=== PATIENT | female | born 1995 | race African-American/Black ===

== ENCOUNTER 2016-06-29 20:37 | Emergency (ER) | payer MEDICAID ==
[~2016-06-29] VITALS: Ht 170.2 cm; Wt 54.4 kg
[~2016-06-29 20:37] MED LIST: ALBUTEROL
[2016-06-29 21:58] VITALS: BP 124/72
== END 2016-06-29 23:39 | disposition home or self-care (01) ==
LOC: ER 20:38
DX: R53.1 Weakness (principal); J45.909 Unspecified asthma, uncomplicated; Z88.0 Allergy status to penicillin; Y04.0XXA Assault by unarmed brawl or fight, initial encounter; Y93.89 Activity, other specified; Y99.8 Other external cause status; Y92.89 Other specified places as the place of occurrence of the external cause
CPT/HCPCS: 99283; Z7610

== ENCOUNTER 2016-09-08 18:34 | Emergency (ER) | payer MEDICAID ==
[~2016-09-08] VITALS: Ht 167.6 cm; Wt 70.0 kg
[2016-09-08 18:59] VITALS: BP 139/79
== END 2016-09-08 19:19 | disposition home or self-care (01) ==
LOC: ER 18:34
DX: J45.909 Unspecified asthma, uncomplicated (principal); R03.0 Elevated blood-pressure reading, without diagnosis of hypertension; Z88.0 Allergy status to penicillin; Z88.1 Allergy status to other antibiotic agents; G40.909 Epilepsy, unspecified, not intractable, without status epilepticus
CPT/HCPCS: 71010; 93005; 99284

== ENCOUNTER 2021-06-13 02:09 | Emergency (ER) | payer MEDICAID ==
[~2021-06-13] VITALS: Ht 157.5 cm; Wt 57.0 kg
[2021-06-13] MEDS ORDERED: BO1 TP ×2 (03:07→15:19)
[2021-06-13] MEDS ORDERED: DIPHENHYDRAMINE 25MG CAPSULE PO ONE (03:15)
[2021-06-13 03:40] VITALS: BP 109/62
[2021-06-13] MEDS ORDERED: DOXY100T28 PO (15:06)
[2021-06-13] MEDS ORDERED: CETI10TA6 PO (15:19)
[2021-06-14 09:07] LABS: HIV SCREEN 4G Non Reactive (Non Reactive)
== END 2021-06-13 03:53 | disposition home or self-care (01) ==
LOC: ER 02:09
DX: A53.9 Syphilis, unspecified (principal); J45.909 Unspecified asthma, uncomplicated; G40.909 Epilepsy, unspecified, not intractable, without status epilepticus; Z88.0 Allergy status to penicillin
CPT/HCPCS: 86592; 86593; 86694; 86695; 86696; 86780; 87389; 99283; Q0163

== ENCOUNTER 2021-06-13 14:42 | Emergency (ER) | payer MEDICAID ==
[~2021-06-13] VITALS: Ht 157.5 cm; Wt 57.0 kg
[~2021-06-13 14:42] MED LIST changes: +BO1 TP
[2021-06-13 14:48] VITALS: BP 114/79
[2021-06-13] MEDS ORDERED: DOXY100T28 PO (15:06)
[2021-06-13] MEDS ORDERED: CETI10TA6 PO (15:19)
[2021-06-13] MEDS ORDERED: BO1 TP (15:19)
== END 2021-06-13 15:17 | disposition home or self-care (01) ==
LOC: ER 14:42
DX: A53.9 Syphilis, unspecified (principal); G40.909 Epilepsy, unspecified, not intractable, without status epilepticus; J45.909 Unspecified asthma, uncomplicated; Z88.0 Allergy status to penicillin
CPT/HCPCS: 99283

== ENCOUNTER 2023-02-16 11:03 | Emergency (ER) | payer MEDICAID, OTHER ==
[~2023-02-16] VITALS: Ht 160 cm; Wt 91.0 kg
[~2023-02-16 11:03] MED LIST changes: +CETI10TA6 PO; +DOXY100T28 PO
[2023-02-16 11:12] VITALS: BP 114/75; O2SAT 100
[2023-02-16] MEDS ORDERED: ONDANSETRON 4MG ODT PO ONE (11:45)
[2023-02-16] MEDS ORDERED: ACETAMINOPHEN 325MG TABLET PO ONE (11:45)
[2023-02-16] MEDS ORDERED: FAMOTIDINE 20MG TABLET PO ONE (11:45)
[2023-02-16] MEDS ORDERED: FAMO-135 MT (11:49)
[2023-02-16] MEDS ORDERED: ACET-2708 MT (11:49)
[2023-02-16] MEDS ORDERED: ONDA4TAB50 MT (11:49)
[2023-02-16 13:59] LABS: BASOPHILS % 0.2 % (0.0-2.0); EOSINOPHILS % 0.5 % (0.0-5.0); HEMATOCRIT. 37.3 % (36.0-48.0); HEMOGLOBIN. 12.4 g/dL (12.0-16.0); LYMPHOCYTES % 17.4 % (20.0-50.0); MEAN CORPUSCULAR HGB CONC 33.2 g/dL (31.0-37.0); MEAN CORPUSCULAR VOLUME 99.6 fL (81.0-99.0); MEAN PLATELET VOLUME 8.2 fl (7.4-10.4); MONOCYTES % 7.2 % (2.0-8.0); NEUTROPHILS % 74.7 % (40.0-76.0); PLATELET 261 x1000/uL (130-400); RED BLOOD CELL COUNT 3.75 mill/uL (4.2-5.4); RED CELL DISTRIBUTION WIDTH 12.7 % (11.6-14.6); WHITE BLOOD COUNT 7.5 x1000/uL (4.5-11.0)
[2023-02-16 14:24] LABS: ALANINE AMINOTRANSFERASE 15 IU/L (10-49); ALBUMIN 4.4 g/dL (3.2-4.8); ASPARTATE AMINOTRANSFERASE 18 IU/L (<34); BILIRUBIN TOTAL 0.4 mg/dL (0.1-1.0); CALCIUM 9.2 mg/dL (8.7-10.4); CARBON DIOXIDE 22 mEq/L (21-32); CHLORIDE 106 mEq/L (98-107); CREATININE 0.7 mg/dL (0.6-1.0); GLUCOSE 98 mg/dL (70-105); POTASSIUM 3.6 mEq/L (3.5-5.1); PROTEIN TOTAL 7.5 g/dL (6.0-8.3); SODIUM 136 mEq/L (136-145); UREA NITROGEN BLOOD 8 mg/dL (9-23)
[2023-02-16] MEDS ORDERED: ONDANSETRON 4MG ODT PO NR (14:30)
[2023-02-16] MEDS ORDERED: ACETAMINOPHEN 325MG TABLET PO NR (14:30)
[2023-02-16] MEDS ORDERED: FAMOTIDINE 20MG TABLET PO NR (14:30)
[2023-02-16 15:05] VITALS: PULSE 10; RESP 18; TEMP 98.6
== END 2023-02-16 15:06 | disposition home or self-care (01) ==
LOC: ER 11:13
DX: A08.4 Viral intestinal infection, unspecified (principal); K21.9 Gastro-esophageal reflux disease without esophagitis; J45.909 Unspecified asthma, uncomplicated
CPT/HCPCS: 99284; 80053; 85025; 36415; Q0162

== ENCOUNTER 2023-03-15 06:49 | Emergency (ER) | payer MEDICAID, OTHER ==
[~2023-03-15] VITALS: Ht 157.5 cm; Wt 64.4 kg
[~2023-03-15 06:49] MED LIST changes: +ACET-2708 MT; +FAMO-135 MT; +ONDA4TAB50 MT
[2023-03-15 07:43] VITALS: BP 105/64; PULSE 102; RESP 16; TEMP 98.3; O2SAT 99
[2023-03-15 07:53] LABS: BASOPHILS % 0.1 % (0.0-2.0); EOSINOPHILS % 1.1 % (0.0-5.0); HEMATOCRIT. 37.2 % (36.0-48.0); HEMOGLOBIN. 12.4 g/dL (12.0-16.0); LYMPHOCYTES % 15.5 % (20.0-50.0); MEAN CORPUSCULAR HEMOGLOBIN 32.7 pg (28.0-32.0); MEAN CORPUSCULAR HGB CONC 33.5 g/dL (31.0-37.0); MEAN CORPUSCULAR VOLUME 97.7 fL (81.0-99.0); MEAN PLATELET VOLUME 7.7 fl (7.4-10.4); MONOCYTES % 6.6 % (2.0-8.0); NEUTROPHILS % 76.7 % (40.0-76.0); PLATELET 249 x1000/uL (130-400); RED BLOOD CELL COUNT 3.81 mill/uL (4.2-5.4); RED CELL DISTRIBUTION WIDTH 13.1 % (11.6-14.6); WHITE BLOOD COUNT 8.2 x1000/uL (4.5-11.0)
[2023-03-15 08:06] LABS: ALANINE AMINOTRANSFERASE 9 IU/L (10-49); ALBUMIN 4.2 g/dL (3.2-4.8); ASPARTATE AMINOTRANSFERASE 14 IU/L (<34); BILIRUBIN TOTAL 0.3 mg/dL (0.1-1.0); CALCIUM 9.1 mg/dL (8.7-10.4); CARBON DIOXIDE 20 mEq/L (21-32); CHLORIDE 105 mEq/L (98-107); CREATININE 0.6 mg/dL (0.6-1.0); GLUCOSE 94 mg/dL (70-105); PROTEIN TOTAL 7.4 g/dL (6.0-8.3); SODIUM 134 mEq/L (136-145); UREA NITROGEN BLOOD 9 mg/dL (9-23)
[2023-03-15 10:22] LABS: CLARITY URINE CLOUDY (CLEAR); COLOR URINE YELLOW (YELLOW); GLUCOSE URINE NEGATIVE (NEGATIVE); KETONES URINE TRACE (NEGATIVE); LEUKOCYTE ESTERASE URINE 2+ (NEGATIVE); NITRITE URINE NEGATIVE (NEGATIVE); OCCULT BLOOD URINE NEGATIVE (NEGATIVE); PH URINE 6.5 (4.5-8.0); PROTEIN URINE TRACE (NEGATIVE); SPECIFIC GRAVITY URINE 1.031 (1.005-1.030)
[2023-03-15 10:22] LABS: HCG SCREEN POSITIVE
[2023-03-15 11:11] LABS: MUCUS URINE 1+ /lpf (< = 2+); SQUAMOUS EPITHELIAL CELL URINE 3+ /lpf (RARE/1+)
[2023-03-15 11:12] LABS: BACTERIA URINE 1+
[2023-03-15 11:13] LABS: TRICHOMONAS URINE FEW
[2023-03-15 11:14] LABS: WBC URINE 15-25 /hpf (0-2)
[2023-03-15 11:15] LABS: RBC URINE 0-2 /hpf (0-2)
[2023-03-15] MEDS ORDERED: ONDA4TAB11 PO (11:37)
[2023-03-15] MEDS ORDERED: CEPH500C2 MT (11:37)
== END 2023-03-15 12:08 | disposition home or self-care (01) ==
LOC: ER 06:49
DX: N39.0 Urinary tract infection, site not specified (principal)
CPT/HCPCS: 36415; 80053; 81003; 84703; 85025; 99283

== ENCOUNTER 2023-07-27 11:02 | Emergency (ER) | payer MEDICAID ==
[~2023-07-27] VITALS: Ht 165.1 cm; Wt 85.0 kg
[~2023-07-27 11:02] MED LIST changes: +CEPH500C2 MT; +ONDA4TAB11 PO
[2023-07-27 11:09] VITALS: O2SAT 98
[2023-07-27 11:46] LABS: BASOPHILS % 0.1 % (0.0-2.0); DIFFERENTIAL COMMENT 0; EOSINOPHILS % 0.6 % (0.0-5.0); HEMATOCRIT. 36.4 % (36.0-48.0); HEMOGLOBIN. 12.2 g/dL (12.0-16.0); LYMPHOCYTES % 10.7 % (20.0-50.0); MEAN CORPUSCULAR HEMOGLOBIN 34.2 pg (28.0-32.0); MEAN CORPUSCULAR HGB CONC 33.4 g/dL (31.0-37.0); MEAN CORPUSCULAR VOLUME 102.4 fL (81.0-99.0); MEAN PLATELET VOLUME 8.4 fl (7.4-10.4); MONOCYTES % 7.9 % (2.0-8.0); NEUTROPHILS % 80.7 % (40.0-76.0); PLATELET 223 x1000/uL (130-400); RED BLOOD CELL COUNT 3.55 mill/uL (4.2-5.4); RED CELL DISTRIBUTION WIDTH 13.4 % (11.6-14.6)
[2023-07-27 11:53] LABS: CHLORIDE 106 mEq/L (98-107); POTASSIUM 4.2 mEq/L (3.5-5.1); SODIUM 135 mEq/L (136-145)
[2023-07-27 11:54] LABS: CALCIUM 9.6 mg/dL (8.7-10.4); CARBON DIOXIDE 21 mEq/L (21-32)
[2023-07-27 11:57] LABS: INR 0.9; PROTHROMBIN TIME 10.4 sec (9.6-11.0)
[2023-07-27 11:59] LABS: CREATININE 0.6 mg/dL (0.6-1.0); GLUCOSE 73 mg/dL (70-105)
[2023-07-27 12:01] LABS: ALANINE AMINOTRANSFERASE 137 IU/L (10-49); ASPARTATE AMINOTRANSFERASE 89 IU/L (<34); BILIRUBIN TOTAL 0.4 mg/dL (0.1-1.0); PROTEIN TOTAL 7.3 g/dL (6.0-8.3)
[2023-07-27 12:18] LABS: ETHANOL BLOOD < 10 mg/dL (<10); UREA NITROGEN BLOOD < 5 mg/dL (9-23)
[2023-07-27 13:19] VITALS: BP 111/65; PULSE 89; RESP 16; TEMP 98.7
== END 2023-07-27 13:30 | disposition short-term general hospital (02) ==
LOC: ER 11:02
DX: O00.01 Abdominal pregnancy with intrauterine pregnancy (principal); M54.50 Low back pain, unspecified; J45.909 Unspecified asthma, uncomplicated; Z3A.28 28 weeks gestation of pregnancy; Z79.899 Other long term (current) drug therapy
CPT/HCPCS: 36415; 70551; 76705; 76805; 80053; 80320; 85025; 86705; 86850; 86900; 99291; G0480

== ENCOUNTER 2024-03-06 19:47 | Emergency (ER) | payer MEDICAID ==
[~2024-03-06] VITALS: Ht 167.6 cm; Wt 80.0 kg
[~2024-03-06 19:47] MED LIST changes: +ONDA-239 PO; -ONDA4TAB11 PO
[2024-03-06 19:49] VITALS: BP 144/18; PULSE 85; RESP 16; TEMP 98.2; O2SAT 98
[2024-03-06] MEDS ORDERED: IBUP-2029 MT (21:58)
[2024-03-06] MEDS ORDERED: METH-653 MT (21:58)
[2024-03-06] MEDS: ACETAMINOPHEN 325MG TABLET PO ONE (22:43)
== END 2024-03-06 22:44 | disposition home or self-care (01) ==
LOC: ER 19:47
DX: S29.011A Strain of muscle and tendon of front wall of thorax, initial encounter (principal); I10 Essential (primary) hypertension; J45.909 Unspecified asthma, uncomplicated; Z88.0 Allergy status to penicillin; X58.XXXA Exposure to other specified factors, initial encounter; Y93.89 Activity, other specified; Y92.89 Other specified places as the place of occurrence of the external cause; Y99.8 Other external cause status
CPT/HCPCS: 71045; 99283